=== PATIENT | male | born 1965 ===

== ENCOUNTER → 2020-06-22 | Outpatient (CLI) | payer OTHER | END | disposition home or self-care (01) | LOC: PPH VACUNA | DX: Z23 Encounter for immunization (principal) ==

== ENCOUNTER 2021-06-24 10:15 | Emergency (ER) | payer OTHER ==
[~2021-06-24] VITALS: Ht 172.7 cm; Wt 74.8 kg
== END 2021-06-24 14:29 | disposition home or self-care (01) ==
LOC: ER 10:15
DX: U07.1 COVID-19 (principal)